=== PATIENT | male | born 1955 | race Caucasian/White ===

== ENCOUNTER → 2016-04-29 | Outpatient (CLI) | payer OTHER, BC | END | disposition home or self-care (01) | LOC: C.RDSM 08:19 | PROVIDERS: ATTEND Physical Medicine & Rehabilitation Sports Medicine | DX: M54.5 Low back pain (principal); M25.552 Pain in left hip ==

== ENCOUNTER → 2017-04-07 | Day surgery (SDC) | payer BC, OTHER ==
[2017-02-17 12:04] VITALS: BMI 28.0
[2017-03-17 13:08] VITALS: Ht 177.8 cm; Wt 91.4 kg
[~2017-04-07] VITALS: Ht 177.8 cm; Wt 91.4 kg
[~2017-04-07] MED LIST: DUTA0.5C PO; MULT-506 PO; NAPR1TAB9 PO; NEBI20TA2 PO
== END | disposition home or self-care (01) ==
LOC: EDSTATUS 09:00 → C.PAT 15:38
PROVIDERS: ATTEND Physical Medicine & Rehabilitation Sports Medicine
DX: S73.192A Other sprain of left hip, initial encounter (principal); Z53.09 Procedure and treatment not carried out because of other contraindication; X58.XXXA Exposure to other specified factors, initial encounter